=== PATIENT | female | born 1955 | race Caucasian/White ===

== ENCOUNTER 2024-05-15 09:13 | Emergency (ER) | payer MEDICARE ==
[~2024-05-15] VITALS: Ht 165.1 cm; Wt 78.5 kg
[2024-05-15 09:51] LABS: BASOPHILS # (AUTO) 0.04 K/uL (0.00-0.20); BASOPHILS % (AUTO) 0.6 % (0.0-5.0); EOSINOPHILS # (AUTO) 0.27 K/uL (0.00-0.70); EOSINOPHILS % (AUTO) 4.2 % (0.0-8.0); HEMATOCRIT 44.2 % (36-48); IMMATURE GRANULOCYTE ABSOLUTE 0.02 K/uL (0-1); LYMPHOCYTES # (AUTO) 1.7 K/uL (1.0-4.8); LYMPHOCYTES % (AUTO) 26.4 % (21.0-51.0); MEAN CORPUSCULAR HEMOGLOBIN 28.5 pg (27.0-33.0); MEAN CORPUSCULAR VOLUME 86.2 fL (79-99); MONOCYTES # (AUTO) 0.6 K/uL (0.1-1.0); MONOCYTES % (AUTO) 9.1 % (3.0-13.0); NEUTROPHILS # (AUTO) 3.8 K/uL (1.8-7.7); NEUTROPHILS % (AUTO) 59.4 % (40.0-77.0); PLATELET COUNT (AUTO) 194 K/uL (130-400); RED BLOOD CELL COUNT(AUTO) 5.13 MIL/uL (4.00-5.50); RED CELL DISTRIBUTION WIDTH 12.7 % (11.0-15.5); WHITE BLOOD COUNT (AUTO) 6.5 K/uL (4.8-10.8)
[2024-05-15 09:57] LABS: APPEARANCE,URINE CLEAR (CLEAR); BILIRUBIN,URINE NEGATIVE (NEGATIVE); COLOR,URINE LIGHT-YELLOW (YELLOW); CREATININE 0.6 mg/dL (0.5-1.0); GLUCOSE, URINE (UA) NEGATIVE (NEGATIVE); KETONES,URINE NEGATIVE (NEGATIVE); LEUKOCYTE ESTERASE ,URINE NEGATIVE Leu/uL (NEGATIVE); NITRATE,URINE NEGATIVE (NEGATIVE); OCCULT BLOOD,URINE NEGATIVE (NEGATIVE); POTASSIUM 4.7 mmol/L (3.5-5.1); PROTEIN,URINE NEGATIVE (NEGATIVE); UROBILINOGEN,URINE 0.2 mg/dL (0.2-1.0)
[2024-05-15 09:58] LABS: ADD UA MICROSCOPIC NO
[2024-05-15] MEDS: KETOROLAC 15MG/ML VIAL (15MG/ML) IM ONE (10:19)
[2024-05-15] MEDS: ORPHENADRINE 60MG/2ML IM ONE (10:19)
[2024-05-15] MEDS: TRIAMCINOLONE ACETONIDE 40 MG/ML 1ML VIAL IM ONE (10:19)
[2024-05-15] MEDS ORDERED: BACL5TAB PO (11:10)
[2024-05-15] MEDS ORDERED: KETO10TA2 PO (11:10)
[2024-05-15 11:26] VITALS: BP 141/56; PULSE 60; RESP 16; O2SAT 97
[2024-05-15] MEDS ORDERED: LACT10SO85 PO (22:48)
[2024-05-15] MEDS ORDERED: CEPH500B PO (22:48)
== END 2024-05-15 11:34 | disposition home or self-care (01) ==
LOC: EDH 09:13
DX: M54.50 Low back pain, unspecified (principal); E03.9 Hypothyroidism, unspecified
CPT/HCPCS: 99284; 80048; 85025; 81003; 36415; 96372 ×3; J3301; J1885; J2360

== ENCOUNTER 2024-05-15 20:39 | Emergency (ER) | payer MEDICARE ==
[~2024-05-15] VITALS: Ht 165.1 cm; Wt 78.0 kg
[~2024-05-15 20:39] MED LIST: BACL5TAB PO; KETO10TA2 PO
[2024-05-15 21:03] VITALS: BP 158/56; PULSE 64; RESP 18
[2024-05-15 21:39] LABS: APPEARANCE,URINE CLEAR (CLEAR); BILIRUBIN,URINE NEGATIVE (NEGATIVE); COLOR,URINE YELLOW (YELLOW); GLUCOSE, URINE (UA) NEGATIVE (NEGATIVE); KETONES,URINE NEGATIVE (NEGATIVE); LEUKOCYTE ESTERASE ,URINE 25 Leu/uL (NEGATIVE); NITRATE,URINE NEGATIVE (NEGATIVE); OCCULT BLOOD,URINE NEGATIVE (NEGATIVE); PROTEIN,URINE 10 mg/dL (NEGATIVE); UROBILINOGEN,URINE 0.2 mg/dL (0.2-1.0)
[2024-05-15 21:46] LABS: ADD UA MICROSCOPIC YES
[2024-05-15 21:54] LABS: BACTERIA,URINE RARE /HPF (None Seen); MUCUS,URINE RARE LPF (None Seen); RBC,URINE 0-1 /HPF (0-1); SQUAMOUS EPITHELIAL CELL,UR RARE /HPF (0-2)
[2024-05-15] MEDS: KETOROLAC 30MG VIAL (30MG/ML) IM ONE (22:21)
[2024-05-15] MEDS ORDERED: LACT10SO85 PO (22:48)
[2024-05-15] MEDS ORDERED: CEPH500B PO (22:48)
== END 2024-05-15 23:03 | disposition home or self-care (01) ==
LOC: EDH 20:39
DX: N39.0 Urinary tract infection, site not specified (principal); K59.00 Constipation, unspecified; I10 Essential (primary) hypertension; E03.9 Hypothyroidism, unspecified; Z79.899 Other long term (current) drug therapy
CPT/HCPCS: 99285; 81001; 74176; 96372; J1885